=== PATIENT | female | born 1980 | race American Indian/Alaskan Native ===

== ENCOUNTER 2019-03-29 11:27 | Outpatient (CLI) | payer BC ==
[2019-03-29 12:33] LABS: Hematocrit 37.8 % (30.3-42.9); Hemoglobin 12.7 gm/dl (10.1-14.3); Mean Corpuscular HGB Conc 34 % (30-34); Mean Corpuscular Volume 86 fl (79-97); Platelet Count 276 K/mm3 (140-440); Red Blood Count 4.41 M/mm3 (3.65-5.03)
[2019-03-29 12:41] LABS: Red Cell Distribution Width 24.3 % (13.2-15.2)
[2019-03-29 12:48] LABS: Alanine Aminotransferase 12 units/L (7-56); Albumin 4.4 g/dL (3.9-5); BUN/Creatinine Ratio 24; Blood Urea Nitrogen 12 mg/dL (7-17); Calcium 9.4 mg/dL (8.4-10.2); Chol/HDL Ratio 2.79 %; HDL Cholesterol 48 mg/dL (40-59); Hemolysis Index 17; LDL Cholesterol,Direct 77 mg/dL (50-130)
[2019-03-29 13:42] LABS: Basophils % (Manual) 0 % (0.0-1.8); Total Cells Counted 100
[2019-03-29 13:44] LABS: Anisocytosis 2+; Hypochromasia 1+
[2019-03-29 13:45] LABS: Platelet Estimate Consistent w Auto
[2019-04-02 14:17] LABS: Vitamin D, 25-OH, D2 <4 ng/mL
== END 2019-03-29 11:28 | disposition home or self-care (01) ==
LOC: LAB 11:27
PROVIDERS: ATTEND Internal Medicine
DX: Z13.1 Encounter for screening for diabetes mellitus (principal); Z13.220 Encounter for screening for lipoid disorders; Z00.00 Encounter for general adult medical examination without abnormal findings; Z13.21 Encounter for screening for nutritional disorder; I10 Essential (primary) hypertension
CPT/HCPCS: 36415; 80053; 80061; 82306; 82607; 83036; 84443; 85007; 85025

== ENCOUNTER 2019-04-01 10:09 | Outpatient (CLI) | payer BC ==
--- NOTE | 2019-04-01 10:45 | XRay Report ---
LEFT SHOULDER, 3 VIEWS 04/01/2019 INDICATION / CLINICAL INFORMATION: M25.512 PAIN IN LEFT SHOULDER. COMPARISON: None available. FINDINGS: No fracture or dislocation. Signer Name: Marc Reese MD Signed: 04/01/2019 10:40 AM [id number]
== END 2019-04-01 10:10 | disposition home or self-care (01) ==
LOC: XRAY 10:09
PROVIDERS: ATTEND Internal Medicine
DX: M25.512 Pain in left shoulder (principal)

== ENCOUNTER 2019-04-28 14:53 | Emergency (ER) | payer BC ==
[2019-04-28 14:59] VITALS: BP 155/71
--- NOTE | 2019-04-28 15:14 | Emergency Department Report ---
ED Back Pain/Injury HPI - General Chief Complaint: Back Pain/Injury Stated Complaint: BACK PAIN Time Seen by Provider: 04/28/19 15:09 Source: patient Limitations: No Limitations - History of Present Illness Initial Comments: This is a 38-year-old female nontoxic, well nourished in appearance, no acute signs of distress presents to the ED with c/o of acute on chronic lower back pain. Patient stated that the past day she was moving and developed this pain. Patient denies any trauma. Denies any bladder or bowel instability. Patient denies any urinary symptoms. Denies any fever, chills, nausea, vomiting, headache, stiff neck, chest pain or shortness of breath. Patient denies any numbness or tingling. Denies any allergies. MD Complaint: back pain -: days(s) (1) Similar Symptoms Previously: Yes Place: work Radiation: none Severity: mild Severity scale (0 -10): 8 Quality: aching Consistency: intermittent Improves With: immobilization, sitting upright Worsens With: movement, walking Context: while lifting, turning/twisting Associated Symptoms: denies other symptoms. denies: confusion, weakness, chest pain, numbness, difficulty walking, cough, difficulty urinating, diaphoresis, incontinence, fever/chills, constipation, headaches, abdominal pain, loss of appetite, malaise, nausea/vomiting, rash, seizure, shortness of breath, syncope - Related Data Previous Rx's Medication Instructions Recorded Last Taken Type Naproxen [Naprosyn TAB] 500 mg PO BID PRN #20 tablet 02/15/19 Unknown Rx Cyclobenzaprine [Flexeril] 10 mg PO QHS PRN #10 tablet 04/28/19 Unknown Rx Naproxen 500 mg PO Q12H PRN #20 tablet 04/28/19 Unknown Rx Allergies Allergy/AdvReac Type Severity Reaction Status Date / Time No Known Allergies Allergy Unverified 02/15/19 16:47 ED Review of Systems ROS: Stated complaint: BACK PAIN Other details as noted in HPI Constitutional: denies: chills, fever Eyes: denies: eye pain, eye discharge, vision change ENT: denies: ear pain, throat pain Respiratory: denies: cough, shortness of breath, wheezing Cardiovascular: denies: chest pain, palpitations Endocrine: no symptoms reported Gastrointestinal: denies: abdominal pain, nausea, diarrhea Genitourinary: denies: urgency, dysuria, discharge Musculoskeletal: back pain. denies: joint swelling, arthralgia Skin: denies: rash, lesions Neurological: denies: headache, weakness, paresthesias Psychiatric: denies: anxiety, depression Hematological/Lymphatic: denies: easy bleeding, easy bruising ED Past Medical Hx - Past Medical History Previous Medical History?: Yes Hx Hypertension: Yes Additional medical history: anxiety - Surgical History Past Surgical History?: No - Social History Smoking Status: Never Smoker Substance Use Type: Alcohol - Medications Home Medications: Home Medications Medication Instructions Recorded Confirmed Last Taken Type Naproxen [Naprosyn TAB] 500 mg PO BID PRN #20 tablet 02/15/19 Unknown Rx Cyclobenzaprine [Flexeril] 10 mg PO QHS PRN #10 tablet 04/28/19 Unknown Rx Naproxen 500 mg PO Q12H PRN #20 tablet 04/28/19 Unknown Rx ED Physical Exam - General Limitations: No Limitations General appearance: alert, in no apparent distress - Head Head exam: Present: atraumatic, normocephalic - Neck Neck exam: Present: normal inspection, full ROM. Absent: tenderness, meningismus, lymphadenopathy - Extremities Exam Extremities exam: Present: full ROM - Back Exam Back exam: Present: normal inspection, full ROM, paraspinal tenderness (lumbar paraspinal). Absent: tenderness, CVA tenderness (R), CVA tenderness (L), muscle spasm, vertebral tenderness, rash noted - Expanded Back Exam Expanded Back exam: Absent: saddle anesthesia Back exam: Negative Straight Leg Raising: Left, Right - Neurological Exam Neurological exam: Present: alert, oriented X3, normal gait - Psychiatric Psychiatric exam: Present: normal affect, normal mood - Skin Skin exam: Present: warm, dry, intact, normal color. Absent: rash ED Course Vital Signs 04/28/19 14:57 Temperature 98.4 F Pulse Rate 96 H Respiratory 16 Rate Blood Pressure 155/71 O2 Sat by Pulse 98 Oximetry - Reevaluation(s) Reevaluation #1: 04/28/19 15:12 Patient is speaking in full sentences with no signs of distress noted. ED Medical Decision Making - Medical Decision Making This is a 38-year-old female that presents with low back strain. Patient is stable was examined by me. There is no spinal tenderness. There is no cauda equina syndrome during examination. No bladder or bowel instability. Patient is discharged with muscle relaxant and NSAID. Patient was instructed not to operate any machinery while taking muscle relaxant as they cause her drowsiness. Patient was referred to Follow-up with a primary care doctor in 3-5 days or if symptoms worsen and continue return to emergency room as soon as possible. At time of discharge, the patient does not seem toxic or ill in appearance. No acute signs of distress noted. Patient agrees to discharge treatment plan of care. No further questions noted by the patient. Critical care attestation.: If time is entered above; I have spent that time in minutes in the direct care of this critically ill patient, excluding procedure time. ED Disposition Clinical Impression: Low back strain Qualifiers: Encounter type: initial encounter Qualified Code(s): S39.012A - Strain of muscle, fascia and tendon of lower back, initial encounter Disposition: DC- TO HOME OR SELFCARE Is pt being admited?: No Does the pt Need Aspirin: No Condition: Stable Instructions: Low Back Strain (ED) Additional Instructions: Follow-up with a primary care doctor in 3-5 days or if symptoms worsen and continue return to emergency room as soon as possible. Prescriptions: Cyclobenzaprine [Flexeril] 10 mg PO QHS PRN #10 tablet PRN Reason: Muscle Spasm Naproxen 500 mg PO Q12H PRN #20 tablet PRN Reason: Pain, Moderate (4-6) Referrals: PRIMARY MD KENNEDY [Referring] - 3-5 Days EULOGIO TINSLEY MD [Staff Physician] - 3-5 Days [facility] [Outside] - 3-[address] [facility] [Outside] - 3-5 Days Forms: Work/School Release Form(ED)
== END 2019-04-28 15:35 | disposition home or self-care (01) ==
LOC: ED 14:53
DX: S39.012A Strain of muscle, fascia and tendon of lower back, initial encounter (principal); I10 Essential (primary) hypertension; X58.XXXA Exposure to other specified factors, initial encounter; Y93.89 Activity, other specified; Y92.89 Other specified places as the place of occurrence of the external cause; Y99.8 Other external cause status
CPT/HCPCS: 99281

== ENCOUNTER 2019-06-21 15:57 | Emergency (ER) | payer BC ==
[2019-06-21 16:31] VITALS: BP 140/80
--- NOTE | 2019-06-21 17:22 | Event Note ---
ED Screening Note Date of service: 06/21/19 Time: 17:20 ED Screening Note: 38 y o EVS emplyee presents with back pain s/p injury while at work no urinary symptoms This initial assessment/diagnostic orders/clinical plan/treatment(s) is/are subject to change based on patients health status, clinical progression and re- assessment by fellow clinical providers in the ED. Further treatment and workup at subsequent clinical providers discretion. Patient/guardian urged not to elope from the ED as their condition may be serious if not clinically assessed and managed. Initial orders include: acc eval
--- NOTE | 2019-06-21 21:24 | Emergency Department Report ---
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 Patient states that she has followed up with her primary care provider Dr. Marquez and has had one refill of pain medication. Patient reports that the back pain radiates down her left leg. Patient returns back to the emergency room stating that she was sent here by [facility] to start the process over with no direction on how to fill out or get any Workmen's Compensation. She states that she was been taken naproxen and Flexeril which minimum results. She states that she had return back to work after 3 days of being off. Patient is able to ambulate without difficulties. - Exam Vital Signs: Vital Signs 06/21/19 16:29 Temperature 98.4 F Pulse Rate 117 H Respiratory 18 Rate Blood Pressure 140/80 O2 Sat by Pulse 95 Oximetry Physical Exam: Alert and oriented 3 no acute distress nontoxic in appearance. Patient is able to ambulate without difficulties. MSE screening note: Focused history and physical exam performed. 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 Patient states that she has followed up with her primary care provider Dr. Marquez and has had one refill of pain medication. Patient reports that the back pain radiates down her left leg. Patient returns back to the emergency room stating that she was sent here by [facility] to start the process over with no direction on how to fill out or get any Workmen's Compensation. She states that she was been taken naproxen and Flexeril which minimum results. She states that she had return back to work after 3 days of being off. Patient is able to ambulate without difficulties. This provider call roundhouse worker at [phone] spoke to Jesus Alberto. She recommends patient to follow up at her office now so she can give her the appropriate paperwork to fill out. This provider escorted patient to the roundhouse worker. supervisor cabinetmaker states that she can handle it from here. I discussed the patient to continue with ibuprofen or Aleve and to follow up with either Dr. Potts or her primary care provider. ED Disposition for MSE Condition: Stable Referrals: PRIMARY CARE, [Primary Care Provider] - 3-5 Days
== END 2019-06-21 23:42 | disposition left against medical advice (07) ==
LOC: ED 15:57
DX: M54.9 Dorsalgia, unspecified (principal)
CPT/HCPCS: 99281

== ENCOUNTER 2019-07-06 10:47 | Outpatient (CLI) | payer BC ==
[2019-07-06 11:56] LABS: Hepatitis C Virus Antibody Non-Reactive (NonReactive)
[2019-07-12 11:57] LABS: HIV-1 Antibody Differentiation SEE SCANNED RESULT; HIV-2 Antibody Differentiation SEE SCANNED RESULT
== END 2019-07-06 10:48 | disposition home or self-care (01) ==
LOC: LAB 10:47
PROVIDERS: ATTEND Obstetrics & Gynecology
DX: Z11.3 Encounter for screening for infections with a predominantly sexual mode of transmission (principal)
CPT/HCPCS: 36415; 86592; 86689; 86706; 86803